=== PATIENT | male | born 1970 | race Caucasian/White ===

== ENCOUNTER 2017-07-05 08:10 | Day surgery (SDC) | payer OTHER ==
[2017-07-03 12:45] LABS: Urine WBC None Seen /hpf (0 - 3)
[2017-07-03 12:56] LABS: Basophils # (auto) 0.1 uL; Basophils % (auto) 0.9 % (0.0-2.0); Eosinophils # (auto) 0.4 uL; Eosinophils % (auto) 5.8 % (0.0-7.0); Hematocrit 43.5 % (41.0-53.0); Lymphocytes # (auto) 1.9 uL; Lymphocytes % (auto) 24.7 % (10.0-50.0); Mean Corpuscular Hemoglobin 29.4 pg (28.0-32.0); Mean Corpuscular Hgb Conc. 34.4 g/dL (32.0-36.0); Mean Corpuscular Volume 85.4 fL (80.0-100.0); Monocytes # (auto) 0.6 uL; Monocytes % (auto) 7.4 % (0.0-12.0); Neutrophils # (auto) 4.7 uL; Neutrophils % (auto) 61.2 % (37.0-80.0); Nucleated Red Blood Cells % 0.1 %; Platelet Count (auto) 259 10^3/uL (140-450); Red Blood Cells 5.09 10^6/uL (4.5-5.90); Red Cell Distribution Width 15.8 % (11.8-14.3); White Blood Cell 7.7 10^3/uL (4.4-10.8)
[2017-07-03 13:05] LABS: Urine Bacteria NONE SEEN /hpf (None Seen); Urine Blood Negative /uL (Negative); Urine Specific Gravity 1.011 (1.001-1.035)
[2017-07-03 13:14] LABS: INR 0.95 (0.9-1.15); Partial Thromboplastin Time 27.3 sec (22.64-33.71); Prothrombin Time 10.3 sec (9.37-12.3)
[2017-07-03 13:29] LABS: Albumin 4.1 g/dL (3.4-5.0); BUN/Creatinine Ratio 12.6; Potassium 3.7 mmol/L (3.5-5.1)
[2017-07-03 13:31] LABS: Bilirubin, Total 1.2 mg/dL (0.2-1.0); Total Protein 7.9 g/dL (6.4-8.2)
[~2017-07-05] VITALS: Ht 188 cm; Wt 102.5 kg
[~2017-07-05 08:10] MED LIST: ALBUAER3 IN; FLUT250M2 INH; GABA300C11 OR; OME20T PO; TAMS0.4C36 PO; TRAM50TA2 PO
[2017-07-05] MEDS ORDERED: ceFAZolin 1GM/50ML 50 ML IV ONE (08:44)
[2017-07-05] MEDS ORDERED: fentaNYL CITRATE 100 MCG/2 ML VL ONE (09:37)
[2017-07-05] MEDS ORDERED: MIDAZOLAM HCL 1MG/1ML-2 ML VIAL ONE (09:38)
[2017-07-05] MEDS ORDERED: MEPERIDINE HCL (50 MG/ML) 1 ML VIAL ONE (09:38)
[2017-07-05] MEDS ORDERED: BUPIVACAINE 0.25% INJ 50ML VIAL ONE (09:56)
[2017-07-05] MEDS ORDERED: ePHEDrine SULFATE 50 MG/ML AMP IV PRN (10:15)
[2017-07-05] MEDS ORDERED: ONDANSETRON HCL 4 MG/2 ML VIAL IV ONE (10:15)
[2017-07-05] MEDS ORDERED: LABETALOL HCL 5 MG/ML 4ML SYRINGE IV PRN (10:15)
[2017-07-05] MEDS ORDERED: KETOROLAC TROMETH 30 MG/ML 1ML VIAL IV ONE (10:15)
[2017-07-05] MEDS ORDERED: DEXAMETHASONE SOD PHOS 10MG/1ML VIAL INJ ONE (10:29)
[2017-07-05] MEDS ORDERED: KETOROLAC TROMETH 30 MG/ML 1ML VIAL ONE (10:31)
[2017-07-05] MEDS ORDERED: PROPOFOL 10 MG/ML 20 ML IV ONE (10:31)
[2017-07-05] MEDS ORDERED: MORPHINE SULFATE 8mg/ml INJ SDV IV ONE (12:00)
[2017-07-05] MEDS: MORPHINE SULFATE 8mg/ml INJ SDV IV PRN ×3 (12:10→13:10)
[2017-07-05 13:10] VITALS: BP 143/86
== END 2017-07-05 13:35 | disposition home or self-care (01) ==
LOC: SUR 08:10
PROVIDERS: ATTEND Surgery
DX: K40.91 Unilateral inguinal hernia, without obstruction or gangrene, recurrent (principal); S30.851A Superficial foreign body of abdominal wall, initial encounter; E66.9 Obesity, unspecified; J45.909 Unspecified asthma, uncomplicated; I10 Essential (primary) hypertension; Z79.01 Long term (current) use of anticoagulants; Z88.8 Allergy status to other drugs, medicaments and biological substances; Z79.891 Long term (current) use of opiate analgesic
CPT/HCPCS: 36415; 49520; 80053; 81001; 85025; 85610; 85730; J0690; J1100; J1885; J2175; J2250; J2270; J2704; J3010; J3490

== ENCOUNTER 2024-10-02 12:19 | Inpatient (IN) | payer OTHER, SELFPAY ==
[~2024-10-02] VITALS: Ht 188 cm; Wt 109.5 kg
[~2024-10-02 12:19] MED LIST changes: +GABA-1254 OR; -GABA300C11 OR; -TAMS0.4C36 PO; +TAMS0.4C39 PO
[2024-10-02 12:45] VITALS: PULSE 109; RESP 19; O2SAT 98
--- NOTE | 2024-10-02 12:50 | ED.PDOC ---
GI ASSESSMENT HPI Comments A 54 year-old male, with a PMHX of DM, Asthma, and COPD, presents to the ED with a chief complaint of Left sided abdominal pain with associated weakness, diarrhea, and cold sweats as of X3 days ago. Patient reports 6/10 abdominal pain, constant, with no associated relieving factors. Patient states abdominal pain has happened before, where he's tried a 3 day liquid diet and other online solutions but notes no alleviation. Patient has a colonoscopy scheduled on 10/14/24 for further evaluation. Patient has no other complaints at this time and otherwise denies further associated symptoms of N/V, dizziness, migraine, chest pain, hematuria, dysuria, or blood streaked stool. Chief Complaint: Abdominal Pain Time Seen by MD: 12:45 Reviewed Notes: Nurses Notes, Medications, Allergies Allergies: Coded Allergies: Fluticasone (Verified Allergy, Unknown, 07/03/17) Home Meds Reported Medications Tramadol Hcl (Tramadol Hcl) 50 Mg Tab, 50 MG PO Q6HP PRN for MODERATE PAIN, MG 07/03/17 Fluticasone-Salmeterol (Advair Diskus 250/50) 1 Puff Ih, 1 PUFF INH BID, #3 INHALER 3 Refills 07/03/17 Albuterol Sulfate (VENTOLIN MDI) 90 Mcg Ih, 180 MCG IN Q6HP PRN for SHORTNESS OF BREATH for 30 Days, MCG 07/03/17 Tamsulosin Hcl (Tamsulosin Hcl) 0.4 Mg Cap, 0.4 MG PO QPM for 30 Days, MG 07/03/17 Gabapentin (NEURONTIN CAPSULE) 300 Mg Cp, 300 MG OR PRN, CP 07/03/17 Omeprazole (Omeprazole) 20 Mg Cap, 20 MG PO DAILY, CAP 07/03/17 Information Source: Patient Mode of Arrival: Ambulatory Timing: Days (3) Duration: Since onset Severity: Moderate Pain Location: LUQ, LLQ Associated sign and symptoms: Diarrhea, Other (weakness and cold sweats ) Past Medical History Surgical History: Denies all surgeries Family History Family History: Reviewed,noncontributory to illness, No family hx of Cancer, No family hx of DM, No family hx of Heart ludmila, No family hx of HTN, No family hx ofKidney ludmila, No family hx of Liver ludmila, No family hx of Lung ludmila, No family hx of Stroke Social History Smoker: Non-Smoker Alcohol: Denies ETOH Use Drugs: Marijuana Lives In: Home Constitutional: reports: weakness, others (cold sweats ); denies: chills, diaphoresis, fatigue, fever, malaise, sweats EENTM: denies: blurred vision, double vision, ear bleeding, ear discharge, ear drainage, ear pain, ear ringing, eye pain, eye redness, hearing loss, mouth pain, mouth swelling, nasal discharge, nose bleeding, nose congestion, nose pain, photophobia, tearing, throat pain, throat swelling, voice changes, others Respiratory: denies: cough, hemoptysis, orthopnea, SOB at rest, shortness of breath, SOB with excertion, stridor, wheezing, others Cardiovascular: denies: chest pain, dizzy spells, diaphoresis, Dyspnea on exertion, edema, irregular heart beat, left arm pain, lightheadedness, palpitations, PND, syncope, others Gastrointestinal: reports: abdominal pain, diarrhea; denies: abdomen distended, blood streaked bowels, constipated, dysphagia, difficulty swallowing, hematemesis, melena, nausea, poor appetite, poor fluid intake, rectal bleeding, rectal pain, vomiting, others Genitourinary: denies: burning, dysuria, flank pain, frequency, hematuria, incontinence, penile discharge, penile sore, pain, testicle pain, testicle swelling, urgency, others Neurological: denies: dizziness, fainting, headache, left sided numbness, left sided weakness, numbness, paresthesia, pre-existing deficit, right sided numbness, right sided weakness, seizure, speech problems, tingling, tremors, weakness, others Musculoskeletal: denies: back pain, gout, joint pain, joint swelling, muscle pain, muscle stiffness, neck pain, others Integumetry: denies: bruises, change in color, change in hair/nails, dryness, laceration, lesions, lumps, rash, wounds, others Allergic/Immunocompromised: denies: Difficulty Healing, Frequent Infections, Hives, Itching, others Hematologic/Lymphatic: denies: anemia, blood clots, easy bleeding, easy bruising, swollen glands, others Endocrine: denies: excessive hunger, excessive sweating, excessive thirst, excessive urination, flushing, intolerance to cold, intolerance to heat, unexplained weight gain, unexplained weight loss, others Psychiatric: denies: anxiety, bipolar disorder, depression, hopeless, panic disorder, schizophrenia, sleepless, suicidal, others All Other Systems: Reviewed and Negative Physical Exam General Appearance: Moderate Distress, Obese HEENT: Normal ENT Inspection, Pharynx Normal, TMs Normal Neck: Full Range of Motion, Non-Tender, Normal, Normal Inspection Respiratory: Chest Non-Tender, Lungs Clear, No Accessory Muscle Use, No Respiratory Distress, Normal Breath Sounds Cardiovascular: No Edema, No JVD, No Murmur, No Gallop, Normal Peripheral Pulses, Regular Rate/Rhythm Breast Exam: Deferred Gastrointestinal: Distended, LLQ, LUQ, No Organomegaly, No Pulsatile Mass, Normal Bowel Sounds, Tenderness Genitalia: Deferred Pelvic: Deferred Rectal: Deferred Extremities: No calf tenderness, Normal capillary refill, Normal inspection, Normal range of motion, Non-tender, No pedal edema Musculoskeletal : Apperance: Normal Neurologic: Alert, juice mixer II-XII nml as Tested, No Motor Deficits, Normal Affect, Normal Mood, No Sensory Deficits Cerebellar Function: Normal Reflexes: Normal Skin: Dry, Normal Color, Warm Lymphatic: No Adenopathy Was a procedure done? Was a procedure done?: No GI differential Dx Differential Diagnosis: Constipation, Gastroenteritis, Dehydration, Food Poisoning, Bacterial, Parasitic, Viral X-Ray, Labs, Meds, VS Vital Signs Date Time Temp Pulse Resp B/P (MAP) Pulse Ox O2 Delivery O2 Flow Rate FiO2 10/02/24 12:52 104 19 153/74 10/02/24 12:45 109 19 98 Room Air* 0 21 10/02/24 12:42 98.1 109 19 155/94 (114) 98 98.1 10/02/24 12:22 97.9 107 16 130/93 98 97.9 Lab Test 10/02/24 12:50 Range/Units White Blood Count 11.3 H 4.4-10.8 10^3/uL Red Blood Count 4.74 4.5-5.90 10^6/uL Hemoglobin 13.4 L 13.5-17.5 g/dL Hematocrit 37.7 L 41.0-53.0 % Mean Corpuscular Volume 79.5 L 80.0-100.0 fL Mean Corpuscular Hemoglobin 28.2 28.0-32.0 pg Mean Corpuscular Hemoglobin Concent 35.5 32.0-36.0 g/dL Red Cell Distribution Width 18.3 H 11.8-14.3 % Platelet Count 354 140-450 10^3/uL Mean Platelet Volume 6.6 L 6.9-10.8 fL Neutrophils (%) (Auto) 70.5 37.0-80.0 % Lymphocytes (%) (Auto) 18.2 10.0-50.0 % Monocytes (%) (Auto) 8.9 0.0-12.0 % Eosinophils (%) (Auto) 1.7 0.0-7.0 % Basophils (%) (Auto) 0.7 0.0-2.0 % Neutrophils # (Auto) 8.0 1.6-8.6 10 ^3/uL Lymphocytes # (Auto) 2.1 0.4-5.4 10 ^3/uL Monocytes # (Auto) 1.0 0-1.3 10 ^3/uL Eosinophils # (Auto) 0.2 0-0.8 10 ^3/uL Basophils # (Auto) 0.1 0-0.2 10 ^3/uL Nucleated Red Blood Cells 0.0 % Prothrombin Time Pending Prothrombin Time INR Pending Activated Partial Thromboplast Time Pending Sodium Level 138 136-145 mmol/L Potassium Level 3.5 3.5-5.1 mmol/L Chloride Level 104 98-107 mmol/L Carbon Dioxide Level 22 20-31 mmol/L Anion Gap 12 5-15 Blood Urea Nitrogen 15 9-23 mg/dL Creatinine 0.83 0.700-1.30 mg/dL Glomerular Filtration Rate Calc 105 >90 mL/min BUN/Creatinine Ratio 18.1 10.0-20.0 Serum Glucose 135 H 74-106 mg/dL Calcium Level 9.7 8.7-10.4 mg/dL Total Bilirubin 1.9 H 0.2-1.0 mg/dL Aspartate Amino Transferase (AST) 25 13-40 U/L Alanine Aminotransferase (ALT) 31 7-40 U/L Alkaline Phosphatase 51 46-116 U/L Total Protein 7.5 5.7-8.2 g/dL Albumin 5.2 H 3.2-4.8 g/dL Lipase 32 12-53 U/L Current Medications Medications (Trade) Dose Ordered Sig/Bessy Route Start Time Stop Time Status Last Admin Ondansetron HCl (Zofran) 4 mg ONCE ONCE IV 10/02/24 12:45 10/02/24 12:46 DC 10/02/24 12:52 Morphine Sulfate 4 mg ONCE ONCE IV 10/02/24 12:45 10/02/24 12:46 DC 10/02/24 12:52 IV Hep-Lock was established The patient was given morphine 4 mg IV push for the pain The patient was given Zofran 4 mg IV push for the nausea A CAT scan of the abdomen and pelvis shows: IMPRESSION: 1. Acute diverticulitis of the descending colon. No definite loculated abscess. Clinical correlation and continued follow-up is recommended. 2. Diffuse hepatic steatosis. Hypodense lesion in the liver could be a cyst. This can be further evaluated with MRI of the abdomen with contrast. Sludge in the gallbladder. Punctate nonobstructive right renal calculus. Because of the findings on the CAT scan, the patient was given Flagyl 500 mg IV piggyback The patient was also given Rocephin 1 g IV piggyback The patient's CBC shows an elevated white blood cell count of 11.3. The chemistry panel otherwise shows a bilirubin of 1.9 The lipase is within normal limits The patient is being admitted to the hospitalist We have discussed the findings with the patient and he is in agreement with the management The patient is admitted at this time. Images Reviewed?: Images reviewed and evaluated by me Time of 1ST Reevaluation: 13:36 Reevaluation 1ST: Unchanged Patient Education/Counseling: Diagnosis, Treatment, Prognosis Family Education/Counseling: No Family Present SEPSIS Sepsis Screen Date sepsis recognized/suspect: Oct 02, 2024 Time Sepsis recognized/suspect: 1222 Recent Procedure: No On Antibiotic Therapy: No Respiratory Rate >20: No Heart Rate >90: Yes Temp<36 C (96.8 F) or >38.3 C: No SBP <90 or MAP <65 mmHG: No New Acute Mental Status Change: No Is the patient on CPAP, BIPAP,: No Physician Orders Urinalysis (10/02/24 12:45) Ct Ab Pel Wo Con-No Oral Or Iv (10/02/24 12:45) Heplock Iv (10/02/24 12:45) PTPTT (10/02/24 12:45) Ceftriaxone 1gm/50ml D5w (Rocephin) (10/02/24 13:45) Metronidazole 500mg/100ml (Flagyl 500mg/ (10/02/24 13:45) Vital Signs Date Time Temp Pulse Resp B/P (MAP) Pulse Ox O2 Delivery O2 Flow Rate FiO2 10/02/24 12:52 104 19 153/74 10/02/24 12:45 109 19 98 Room Air* 0 21 10/02/24 12:42 98.1 109 19 155/94 (114) 98 98.1 10/02/24 12:22 97.9 107 16 130/93 98 97.9 Laboratory Tests Test 10/02/24 12:50 White Blood Count 11.3 10^3/uL (4.4-10.8) H Medications Medications Dose Ordered Sig/Bessy Route Start Time Stop Time Status Last Admin Dose Admin Morphine Sulfate 4 mg ONCE ONCE IV 10/02/24 12:45 10/02/24 12:46 DC 10/02/24 12:52 Ondansetron HCl 4 mg ONCE ONCE IV 10/02/24 12:45 10/02/24 12:46 DC 10/02/24 12:52 Departure 1 Departure Time of Disposition: 13:41 Impression: Primary Impression: Intractable abdominal pain Additional Impression: Acute diverticulitis Disposition: ADMITTED INPATIENT Admit to: Med Surg Condition: Fair Critical Care Note Critical Care Time?: No Stability Stability form required: Yes Unstable for transfer: ED Physician Assesment (Clinical assesment) Heart Score Heart Score: Heart Score Response (Comments) Value History N/A 0 EKG N/A 0 Age N/A 0 Risk Factors N/A 0 Troponin N/A 0 Total 0 I personally scribed for SALMA WALLACE MD ([email or web address]) on 10/02/24 at 12:50. Electronically submitted by Kaleigh Reddy ([employer]). SALMA WALLACE MD Oct 02, 2024 12:50
[2024-10-02] MEDS: MORPHINE SULFATE 4 MG/ML SYR/VIAL IV ONE (12:52)
[2024-10-02] MEDS: ONDANSETRON HCL 4 MG/2 ML VIAL IV ONE (12:52)
[2024-10-02 13:14] LABS: Hematocrit 37.7 % (41.0-53.0); Hemoglobin 13.4 g/dL (13.5-17.5); Mean Corpuscular Hemoglobin 28.2 pg (28.0-32.0); Mean Corpuscular Volume 79.5 fL (80.0-100.0); Nucleated Red Blood Cells % 0.0 %
[2024-10-02 13:31] LABS: Alanine Aminotransferase 31 U/L (7-40); Alkaline Phosphatase 51 U/L (46-116); Anion Gap 12 (5-15); BUN/Creatinine Ratio 18.1 (10.0-20.0); Blood Urea Nitrogen 15 mg/dL (9-23); Calcium 9.7 mg/dL (8.7-10.4); Carbon Dioxide 22 mmol/L (20-31); Chloride 104 mmol/L (98-107); Lipase 32 U/L (12-53); Sodium 138 mmol/L (136-145); Total Protein 7.5 g/dL (5.7-8.2)
[2024-10-02 13:32] LABS: Albumin 5.2 g/dL (3.2-4.8); Bilirubin, Total 1.9 mg/dL (0.2-1.0); Glucose 135 mg/dL (74-106); Potassium 3.5 mmol/L (3.5-5.1)
--- NOTE | 2024-10-02 13:32 | DVH ---
Exam: CT CT AB PEL WO CON-NO ORAL OR IV History: pain Comparison Study: None Technique: Multidetector spiral CT of the abdomen and pelvis was performed from lung bases to pubic symphysis. Imaging was performed without IV contrast. Axial, coronal and sagittal multiplanar reform ats were obtained from the axial data set by the technologist. Radiation dose : Abdomen/Pelvis: CTDIvol 21 mGy, DLP 1272 mGy*cm. Findings: Evaluation of solid organs is limited due to lack of intravenous contrast use. Lung Bases: No acute or significant lung base finding. Normal heart size. No pleural or pericardial effusion. Liver: Diffuse hepatic steatosis. Hypodense liver lesion measuring up to 15 mm. Gallbladder and biliary Tree: Sludge in the gallbladder. Spleen: Unremarkable Pancreas: The pancreas is grossly normal in appearance. Adrenal Glands: Unremarkable Kidneys: Punctate right renal calculus. No hydronephrosis. Bladder: Grossly unremarkable for degree of distention. Bowel: The stomach is grossly normal in appearance. Small bowel and colon are normal in caliber and d istribution. Normal appendix is visualized in the right lower quadrant without findings of appendicit is. Colonic diverticulosis. Wall thickening with adjacent stranding in the descending colon. No def inite loculated abscess. Ascites: Absent Lymphadenopathy: Subcentimeter mesenteric lymph nodes noted. Abdominal wall and Mesentery: Stranding along the descending colon as above. Vasculature: Calcified atherosclerotic disease. Pelvic Organs: Unremarkable Musculoskeletal: No aggressive focal bony lesions, acute fractures or dislocation. IMPRESSION: 1. Acute diverticulitis of the descending colon. No definite loculated abscess. Clinical correlatio n and continued follow-up is recommended. 2. Diffuse hepatic steatosis. Hypodense lesion in the liver could be a cyst. This can be further adarsh luated with MRI of the abdomen with contrast. Sludge in the gallbladder. Punctate nonobstructive righ t renal calculus. Radiation optimization: All CT scans at this facility use at least one of these dose optimization elisabet hniques: Automated exposure control mA and/or kV adjustment per patient size (includes targeted exams where dose is matched to clinical indication) or iterative reconstruction. HS:Y
[2024-10-02] MEDS: cefTRIAXone 1GM/50ML D5W 50 ML IV ONE (14:00)
[2024-10-02 14:01] LABS: INR 1.12 (0.9-1.15); Partial Thromboplastin Time 30.7 SEC (24.5-34.5); Prothrombin Time 11.7 sec (9.3-11.8)
[2024-10-02 16:51] LABS: Urine Amorphous Crystal FEW /hpf (None Seen); Urine Protein, UAD 1+ (Negative)
--- NOTE | 2024-10-02 18:54 | DVHHP2 ---
Admitting Diagnosis: Abdominal pain History of Present Illness A 54 year-old male, with a PMHX of DM, Asthma, and COPD, presents to the ED with a chief complaint of Left sided abdominal pain with associated weakness, diarrhea, and cold sweats as of X3 days ago. Patient reports 6/10 abdominal pain, constant, with no associated relieving factors. Patient states abdominal pain has happened before, where he's tried a 3 day liquid diet and other online solutions but notes no alleviation. Patient has a colonoscopy scheduled on 10/14/24 for further evaluation. Patient has no other complaints at this time and otherwise denies further associated symptoms of N/V, dizziness, migraine, chest pain, hematuria, dysuria, or blood streaked stool. Surgical History: Denies all surgeries Family History Family History: Reviewed,noncontributory to illness, No family hx of Cancer, No family hx of DM, No family hx of Heart ludmila, No family hx of HTN, No family hx ofKidney ludmila, No family hx of Liver ludmila, No family hx of Lung ludmila, No family hx of Stroke Social History Smoker: Non-Smoker Alcohol: Denies ETOH Use Drugs: Marijuana Lives In: Home Allergies: Coded Allergies: Fluticasone (Verified Allergy, Unknown, 07/03/17) Home Meds Reported Medications Tramadol Hcl (Tramadol Hcl) 50 Mg Tab, 50 MG PO Q6HP PRN for MODERATE PAIN, MG 07/03/17 Fluticasone-Salmeterol (Advair Diskus 250/50) 1 Puff Ih, 1 PUFF INH BID, #3 INHALER 3 Refills 07/03/17 Albuterol Sulfate (VENTOLIN MDI) 90 Mcg Ih, 180 MCG IN Q6HP PRN for SHORTNESS OF BREATH for 30 Days, MCG 07/03/17 Tamsulosin Hcl (Tamsulosin Hcl) 0.4 Mg Cap, 0.4 MG PO QPM for 30 Days, MG 07/03/17 Gabapentin (NEURONTIN CAPSULE) 300 Mg Cp, 300 MG OR PRN, CP 07/03/17 Omeprazole (Omeprazole) 20 Mg Cap, 20 MG PO DAILY, CAP 07/03/17 Vital Signs Vital Signs Date Time Temp Pulse Resp B/P (MAP) Pulse Ox O2 Delivery O2 Flow Rate FiO2 10/02/24 15:15 98.7 95 18 114/74 (87) 97 98.7 10/02/24 12:45 Room Air* 0 21 Physical Exam Generally 54 years old male, well nourished well developed. No apparent distress HEENT-atraumatic, normocephalic Heart-regular rate and rhythm Lungs clear to auscultate bilaterally Abdomen soft mild epigastrium tender nondistended Musculoskeletal-no edema cyanosis Neuro-AO x3, no focal deficits SEPSIS Sepsis Screen Date sepsis recognized/suspect: Oct 02, 2024 Time Sepsis recognized/suspect: 1514 Recent Procedure: No On Antibiotic Therapy: No Respiratory Rate >20: No Heart Rate >90: No Temp<36 C (96.8 F) or >38.3 C: No SBP <90 or MAP <65 mmHG: No New Acute Mental Status Change: No Is the patient on CPAP, BIPAP,: No Physician Orders Ct Ab Pel Wo Con-No Oral Or Iv (10/02/24 12:45) Heplock Iv (10/02/24 12:45) Clear Liq Diet (10/03/24 Breakfast) Complete Blood Count (10/03/24 05:00) Complete Blood Count (10/04/24 05:00) Complete Blood Count (10/05/24 05:00) Complete Blood Count (10/06/24 05:00) Complete Blood Count (10/07/24 05:00) Comprehensive Metabolic Panel (10/03/24 05:00) Comprehensive Metabolic Panel (10/04/24 05:00) Comprehensive Metabolic Panel (10/05/24 05:00) Comprehensive Metabolic Panel (10/06/24 05:00) Comprehensive Metabolic Panel (10/07/24 05:00) Ceftriaxone 1gm/50ml D5w (Rocephin) (10/03/24 09:00) Metronidazole 500mg/100ml (Flagyl 500mg/ (10/02/24 22:00) Admit (10/02/24 18:48) Code Status (10/02/24 18:48) Vital Signs .PER UNIT PROTOCOL (10/02/24 18:48) Review Orders With Adm.Md (10/02/24 18:48) Encourage Activity As Tolerate (10/02/24 18:48) Sodium Chloride Lock (Saline Lock Ns) (10/02/24 22:00) Sodium Chloride 0.9% (10/02/24 19:00) Docusate Sodium Capsule (Colace Capsule) (10/02/24 19:00) Acetaminophen Tablet (Tylenol Tablet) (10/02/24 19:00) Notify Md Of Changes From Base (10/02/24 18:48) Advance Directive (10/02/24 18:48) Patient Condition (10/02/24 18:48) Allergies (10/02/24 18:48) Hydrocodone-Acet 5/325mg Tab ([place] 5/32 (10/02/24 19:00) Ondansetron Hcl (Zofran) (10/02/24 19:00) Enoxaparin Sodium (Lovenox) (10/03/24 10:00) Vital Signs Date Time Temp Pulse Resp B/P (MAP) Pulse Ox O2 Delivery O2 Flow Rate FiO2 10/02/24 15:15 98.7 95 18 114/74 (87) 97 98.7 10/02/24 14:10 95 16 129/82 10/02/24 14:00 95 16 129/82 (98) 97 10/02/24 12:52 104 19 153/74 10/02/24 12:45 109 19 98 Room Air* 0 21 10/02/24 12:42 98.1 109 19 155/94 (114) 98 98.1 10/02/24 12:22 97.9 107 16 130/93 98 97.9 Laboratory Tests Test 10/02/24 12:50 White Blood Count 11.3 10^3/uL (4.4-10.8) H Medications Medications Dose Ordered Sig/Bessy Route Start Time Stop Time Status Last Admin Dose Admin Ceftriaxone Sodium 50 ml @ 100 mls/hr ONCE ONCE IV 10/02/24 13:45 10/02/24 14:14 DC 10/02/24 14:00 Metronidazole 100 ml @ 100 mls/hr ONCE ONCE IV 10/02/24 13:45 10/02/24 14:44 DC 10/02/24 14:23 Morphine Sulfate 4 mg ONCE ONCE IV 10/02/24 12:45 10/02/24 12:46 DC 10/02/24 12:52 Ondansetron HCl 4 mg ONCE ONCE IV 10/02/24 12:45 10/02/24 12:46 DC 10/02/24 12:52 Results Labs Test 10/02/24 16:30 10/02/24 12:50 Range/Units Urine Color Yellow Yellow Urine Clarity Turbid H Clear Urine pH 5.5 5.0-9.0 Urine Specific [place] 1.030 1.001-1.035 Urine Protein 1+ H Negative Urine Ketones 1+ H Negative Urine Blood Negative Negative /uL Urine Nitrite Negative Negative Urine Bilirubin Negative Negative Urine Urobilinogen 3 H Negative mg/dL Urine Leukocyte Esterase Negative Negative /uL Urine RBC <1 0 - 3 /hpf Urine Microscopic WBC 4 H 0-3 /HPF Urine Squamous Epithelial Cells Few <5 /hpf Urine Amorphous Crystals Few None Seen /hpf Urine Bacteria None seen None Seen /hpf Urine Mucus Few None Seen Urine Glucose Normal Normal mg/dL White Blood Count 11.3 H 4.4-10.8 10^3/uL Red Blood Count 4.74 4.5-5.90 10^6/uL Hemoglobin 13.4 L 13.5-17.5 g/dL Hematocrit 37.7 L 41.0-53.0 % Mean Corpuscular Volume 79.5 L 80.0-100.0 fL Mean Corpuscular Hemoglobin 28.2 28.0-32.0 pg Mean Corpuscular Hemoglobin Concent 35.5 32.0-36.0 g/dL Red Cell Distribution Width 18.3 H 11.8-14.3 % Platelet Count 354 140-450 10^3/uL Mean Platelet Volume 6.6 L 6.9-10.8 fL Neutrophils (%) (Auto) 70.5 37.0-80.0 % Lymphocytes (%) (Auto) 18.2 10.0-50.0 % Monocytes (%) (Auto) 8.9 0.0-12.0 % Eosinophils (%) (Auto) 1.7 0.0-7.0 % Basophils (%) (Auto) 0.7 0.0-2.0 % Neutrophils # (Auto) 8.0 1.6-8.6 10 ^3/uL Lymphocytes # (Auto) 2.1 0.4-5.4 10 ^3/uL Monocytes # (Auto) 1.0 0-1.3 10 ^3/uL Eosinophils # (Auto) 0.2 0-0.8 10 ^3/uL Basophils # (Auto) 0.1 0-0.2 10 ^3/uL Nucleated Red Blood Cells 0.0 % Prothrombin Time 11.7 9.3-11.8 sec Prothrombin Time INR 1.12 0.9-1.15 Activated Partial Thromboplast Time 30.7 24.5-34.5 SEC Sodium Level 138 136-145 mmol/L Potassium Level 3.5 3.5-5.1 mmol/L Chloride Level 104 98-107 mmol/L Carbon Dioxide Level 22 20-31 mmol/L Anion Gap 12 5-15 Blood Urea Nitrogen 15 9-23 mg/dL Creatinine 0.83 0.700-1.30 mg/dL Glomerular Filtration Rate Calc 105 >90 mL/min BUN/Creatinine Ratio 18.1 10.0-20.0 Serum Glucose 135 H 74-106 mg/dL Calcium Level 9.7 8.7-10.4 mg/dL Total Bilirubin 1.9 H 0.2-1.0 mg/dL Aspartate Amino Transferase (AST) 25 13-40 U/L Alanine Aminotransferase (ALT) 31 7-40 U/L Alkaline Phosphatase 51 46-116 U/L Total Protein 7.5 5.7-8.2 g/dL Albumin 5.2 H 3.2-4.8 g/dL Lipase 32 12-53 U/L Primary Diagnosis Acute diverticulitis Nonobstructing renal calculus Plan Ceftriaxone 1 g q.day, Flagyl q.8 hours 500 Monitor for pain IV fluids Clear liquid diet advance as tolerated Antiemetic Ultrasound abdomen to assess for elevated LFT woman and gallbladder Full code Lovenox for DVT prophylaxis No GI for prophylaxis needed Plan discussed with: Patient Date of Service: Oct 02, 2024 Billing Provider: KRISTINE GARCIA MD Common Visit Codes: 52207-[id number] INP/OBS CARE (MOD) KRISTINE GARCIA MD Oct 02, 2024 18:54
[2024-10-02] MEDS ORDERED: HYDROcodone-ACET 5/325MG TAB PO PRN (19:00)
[2024-10-02] MEDS ORDERED: ONDANSETRON HCL 4 MG/2 ML VIAL IV PRN (19:00)
[2024-10-02] MEDS ORDERED: DOCUSATE SOD 100 MG CAP PO PRN (19:00)
[2024-10-02] MEDS: SODIUM CHLORIDE 0.9% 1,000 ML IV SCH (19:18)
--- NOTE | 2024-10-02 20:03 | DVH ---
ULTRASOUND ABDOMEN: REASON FOR EXAM: asess renal and liver. elevated lft and kidney stone TECHNIQUE: Real-time sector scans in the transverse and longitudinal planes were obtained through th e abdomen. FINDINGS: The liver is enlarged at 20.6 cm in length. There is a anechoic cyst measuring 1.5 x 1.4 x 1.6 cm in the left lobe of the liver. The liver parenchyma is severely echogenic. There is hepatopet al flow in the portal vein. There is no intrahepatic nor extrahepatic biliary ductal dilatation. The common bile duct measures 6 mm. No gallstones or sludge are identified. There is no gallbladder wa ll thickening nor pericholecystic fluid. There is no sonographic Gardner's sign. The spleen is borderline enlarged at 14.9 cm in length. The visualized portion of the pancreas is unr emarkable. The right kidney measures 10.6 cm. The left kidney measures 11.3 cm. There is no hydronephrosis of either kidney. There is a 3 mm nonobstructive shadowing stone at the inferior pole of the right kidne y. There is no evidence of focal renal mass or cyst. The visualized portions of the abdominal aorta demonstrate no evidence of aneurysmal dilatation. The visualized inferior vena cava is unremarkable. There is no free intraperitoneal fluid. IMPRESSION: The liver is severely echogenic. The liver is diffusely hypoattenuating which may be secondary to eduardo atosis or another diffuse hepatic process. Correlate clinically and with liver function tests. Simple appearing 1.6 cm left hepatic cyst. No dedicated follow-up is required. Borderline splenomegaly Nonobstructive 3 mm right renal calculus.
[2024-10-02 21:40] VITALS: BP 132/89; PULSE 80; RESP 19; TEMP 97.9; O2SAT 99
[2024-10-02] MEDS: SODIUM CHLOR 0.9% PF (SALINE LOCK) 10ML VIAL/SYR IV SCH (22:34)
[2024-10-03] VITALS (8 sets, daily range): BP systolic 109–138; BP diastolic 74–90; PULSE 65–86; RESP 18–20; TEMP 97.7–98.1; O2SAT 96–99
[2024-10-03] MEDS ORDERED: ALBU0.084 NEB (00:17)
[2024-10-03 06:59] LABS: Hematocrit 36.3 % (41.0-53.0); Hemoglobin 12.8 g/dL (13.5-17.5); Mean Corpuscular Hemoglobin 28.1 pg (28.0-32.0); Mean Corpuscular Volume 80.0 fL (80.0-100.0); Nucleated Red Blood Cells % 0.0 %
[2024-10-03 07:09] LABS: Alanine Aminotransferase 35 U/L (7-40); Alkaline Phosphatase 52 U/L (46-116); Anion Gap 13 (5-15); BUN/Creatinine Ratio 19.8 (10.0-20.0); Blood Urea Nitrogen 17 mg/dL (9-23); Calcium 10.0 mg/dL (8.7-10.4); Carbon Dioxide 24 mmol/L (20-31); Chloride 103 mmol/L (98-107); Potassium 3.6 mmol/L (3.5-5.1); Sodium 140 mmol/L (136-145); Total Protein 7.2 g/dL (5.7-8.2)
[2024-10-03 07:10] LABS: Albumin 5.2 g/dL (3.2-4.8); Bilirubin, Total 1.5 mg/dL (0.2-1.0); Glucose 138 mg/dL (74-106)
[2024-10-03] MEDS: cefTRIAXone 1GM/50ML D5W 50 ML IV SCH (09:02)
[2024-10-03] MEDS: ENOXAPARIN SOD 40 MG/0.4 ML SYRINGE SC SCH (09:09)
--- NOTE | 2024-10-03 11:19 | DVHPN2 ---
Progress Note Date Seen: Oct 03, 2024 Medical Necessity Reason Pt with a Central, PICC or Fol: No Subjective Patient reports: No new complaints Review of Systems: HEENT:Normal, CVS:Normal, RESPIRATORY:Normal, GI:Normal, :Normal, MSK:Normal, NEURO:Normal Objective vital signs Vital Sign Date Time Temp Pulse Resp B/P (MAP) Pulse Ox O2 Delivery O2 Flow Rate FiO2 10/03/24 10:00 98.1 79 20 136/84 (101) 98 98.1 10/02/24 23:05 Room Air* 0 21 Total Intake and Output 10/02/24 10/02/24 10/03/24 15:00 23:00 07:00 Intake Total 50 ml 100 ml 200 ml Balance 50 ml 100 ml 200 ml medications Current Medications Medications Dose Ordered Sig/Bessy Route Start Time Stop Time Status Last Admin Dose Admin Ceftriaxone Sodium 50 ml @ 100 mls/hr DAILY@09 IV 10/03/24 09:00 10/03/24 09:02 100 MLS/HR Metronidazole 100 ml @ 100 mls/hr Q8HR IV 10/02/24 22:00 10/03/24 05:46 100 MLS/HR Sodium Chloride 10 ml Q8HR IV 10/02/24 22:00 10/03/24 05:45 10 ML Sodium Chloride 1,000 ml @ 60 mls/hr [id number] IV 10/02/24 19:00 10/02/24 19:18 60 MLS/HR Docusate Sodium 100 mg BIDPRN PRN PO 10/02/24 19:00 Acetaminophen 650 mg Q6HP PRN PO 10/02/24 19:00 Acetaminophen/ Hydrocodone Bitart 1 tab Q4HP PRN PO 10/02/24 19:00 Ondansetron HCl 4 mg Q4HP PRN IV 10/02/24 19:00 Enoxaparin Sodium 40 mg DAILY SC 10/03/24 10:00 Examination: GENERAL:Normal, HEENT:Normal, NECK:Normal, LUNGS:Normal, CVS:Normal, ABDOMEN:Normal, ABDOMEN:Abnormal (left abd tenderness), MSK:Normal, SKIN:Normal, NEURO:Normal, :Normal laboratory and microbiology Laboratory Tests 10/03/24 06:24 Test 10/03/24 06:24 Range/Units Serum Glucose 138 H 74-106 mg/dL Problem List/Assessment/Plan Problem List/Assessment/Plan #1 acute diverticulitis: iv antibiotics #2 copd #3 prediabetes #4 renal stone #5 hepatic steatosis advance care planning- full code- time spent 17 mins Plan discussed with: Patient Date of Service: Oct 03, 2024 Billing Provider: DARLEEN HASSAN MD Common Visit Codes: [id number] INP/OBS CARE(HIGH) Secondary Visit Codes: [id number] CARE PLAN 30 MINUTES DARLEEN HASSAN MD Oct 03, 2024 11:19
[2024-10-03] MEDS ORDERED: MORPHINE SULFATE INJ 2 MG/ml SYRG IV PRN (11:30)
[2024-10-03] MEDS: ACETAMINOPHEN 325 MG TAB PO PRN (13:04)
[2024-10-04] VITALS (8 sets, daily range): BP systolic 120–145; BP diastolic 69–97; PULSE 67–84; RESP 17–18; TEMP 96.6–97.9; O2SAT 94–98
[2024-10-04 05:32] LABS: Alanine Aminotransferase 30 U/L (7-40); Albumin 4.6 g/dL (3.2-4.8); Alkaline Phosphatase 48 U/L (46-116); Anion Gap 11 (5-15); BUN/Creatinine Ratio 14.8 (10.0-20.0); Blood Urea Nitrogen 12 mg/dL (9-23); Calcium 9.0 mg/dL (8.7-10.4); Carbon Dioxide 23 mmol/L (20-31); Chloride 106 mmol/L (98-107); Potassium 3.5 mmol/L (3.5-5.1); Sodium 140 mmol/L (136-145); Total Protein 6.4 g/dL (5.7-8.2)
[2024-10-04 05:33] LABS: Bilirubin, Total 0.8 mg/dL (0.2-1.0)
[2024-10-04 05:36] LABS: Glucose 142 mg/dL (74-106)
[2024-10-04 05:41] LABS: Hematocrit 34.8 % (41.0-53.0); Hemoglobin 12.2 g/dL (13.5-17.5); Mean Corpuscular Hemoglobin 27.8 pg (28.0-32.0); Mean Corpuscular Volume 79.6 fL (80.0-100.0); Nucleated Red Blood Cells % 0.1 %
--- NOTE | 2024-10-04 17:37 | DVHPN2 ---
Subjective Better Changes from previous H/P or p: Changes Objective Vitals Vital Signs Date Time Temp Pulse Resp B/P (MAP) Pulse Ox O2 Delivery O2 Flow Rate FiO2 10/04/24 17:00 97.3 67 17 132/77 (95) 98 97.3 10/04/24 08:00 Room Air* 0 21 Intake/Output Intake and Output 10/04/24 07:00 Intake Total 2009 ml Balance 2009 ml Intake Oral 1300 ml IV Total 710 ml # Voids 10 # Bowel Movements 8 General Appearance: Alert, Oriented X3, Cooperative Lungs: Clear to auscultation, Normal air movement Cardiovascular: Regular rate, Normal S1, Normal S2 Abdomen: Normal bowel sounds, Soft, No tenderness Extremities: No edema Medications Current Medications Medications Dose Ordered Sig/Bessy Route Start Time Stop Time Status Last Admin Dose Admin Ceftriaxone Sodium 50 ml @ 100 mls/hr DAILY@09 IV 10/03/24 09:00 10/04/24 09:42 100 MLS/HR Metronidazole 100 ml @ 100 mls/hr Q8HR IV 10/02/24 22:00 10/04/24 15:49 100 MLS/HR Sodium Chloride 10 ml Q8HR IV 10/02/24 22:00 10/04/24 14:00 10 ML Sodium Chloride 1,000 ml @ 60 mls/hr [id number] IV 10/02/24 19:00 10/03/24 11:40 60 MLS/HR Docusate Sodium 100 mg BIDPRN PRN PO 10/02/24 19:00 Acetaminophen 650 mg Q6HP PRN PO 10/02/24 19:00 10/03/24 13:04 650 MG Acetaminophen/ Hydrocodone Bitart 1 tab Q4HP PRN PO 10/02/24 19:00 Ondansetron HCl 4 mg Q4HP PRN IV 10/02/24 19:00 Enoxaparin Sodium 40 mg DAILY SC 10/03/24 10:00 Morphine Sulfate 1 mg Q6HP PRN IV 10/03/24 11:30 Laboratory Results Laboratory Tests 10/04/24 04:58 Chemistry Test 10/04/24 04:58 Albumin 4.6 g/dL (3.2-4.8) Calcium Level 9.0 mg/dL (8.7-10.4) Total Protein 6.4 g/dL (5.7-8.2) LFT Test 10/04/24 04:58 Alanine Aminotransferase (ALT) 30 U/L (7-40) Alkaline Phosphatase 48 U/L (46-116) Aspartate Amino Transferase (AST) 22 U/L (13-40) Total Bilirubin 0.8 mg/dL (0.2-1.0) Urinalysis Test 10/02/24 16:30 Urine Color Yellow (Yellow) Urine Clarity Turbid (Clear) H Urine pH 5.5 (5.0-9.0) Urine Specific [place] 1.030 (1.001-1.035) Urine Protein 1+ (Negative) H Urine Ketones 1+ (Negative) H Urine Blood Negative /uL (Negative) Urine Nitrite Negative (Negative) Urine Bilirubin Negative (Negative) Urine Urobilinogen 3 mg/dL (Negative) H Urine Leukocyte Esterase Negative /uL (Negative) Urine RBC <1 /hpf (0 - 3) Urine Microscopic WBC 4 /HPF (0-3) H Urine Squamous Epithelial Cells Few /hpf (<5) Urine Amorphous Crystals Few /hpf (None Seen) Urine Bacteria None seen /hpf (None Seen) Urine Mucus Few (None Seen) Urine Glucose Normal mg/dL (Normal) Assessment/Plan Assessment/Plan Acute diverticulitis COPD Hepatic steatosis PLAN: Advance diet Rocephin Flagyl IV fluids Plan discussed with: Patient My Orders Orders - BOZENA GARCIA MD Procedure Category Date Status Time Mechanical Soft Diet DIET 10/04/24 Transmitted Lunch Date of Service: Oct 04, 2024 Billing Provider: BOZENA GARCIA MD Common Visit Codes: [id number] INP/OBS CARE(HIGH) BOZENA GARCIA MD Oct 04, 2024 17:37
[2024-10-05 01:00] VITALS: BP 129/83; PULSE 73; RESP 17; TEMP 98; O2SAT 96
[2024-10-05 05:00] VITALS: BP 124/82; PULSE 70; RESP 17; TEMP 97.7; O2SAT 96
[2024-10-05 08:00] VITALS: PULSE 80; RESP 18; O2SAT 96
[2024-10-05 09:00] VITALS: BP 123/87; PULSE 72; RESP 16; TEMP 97.7; O2SAT 95
[2024-10-05 09:45] LABS: Hematocrit 38.5 % (41.0-53.0); Hemoglobin 13.7 g/dL (13.5-17.5); Mean Corpuscular Hemoglobin 28.4 pg (28.0-32.0); Mean Corpuscular Volume 79.9 fL (80.0-100.0); Nucleated Red Blood Cells % 0.1 %
[2024-10-05 09:59] LABS: Alanine Aminotransferase 34 U/L (7-40); Alkaline Phosphatase 54 U/L (46-116); Anion Gap 12 (5-15); BUN/Creatinine Ratio 14.7 (10.0-20.0); Bilirubin, Total 0.7 mg/dL (0.2-1.0); Blood Urea Nitrogen 14 mg/dL (9-23); Calcium 9.7 mg/dL (8.7-10.4); Carbon Dioxide 24 mmol/L (20-31); Chloride 106 mmol/L (98-107); Potassium 3.6 mmol/L (3.5-5.1); Sodium 142 mmol/L (136-145); Total Protein 7.4 g/dL (5.7-8.2)
[2024-10-05 10:05] LABS: Albumin 5.2 g/dL (3.2-4.8); Glucose 207 mg/dL (74-106)
[2024-10-05] MEDS ORDERED: METR-344 PO (10:37)
[2024-10-05] MEDS ORDERED: CIPR-173 PO (10:37)
--- NOTE | 2024-10-05 10:37 | DVHDS2 ---
Discharge Summary Date of Admission Oct 02, 2024 at 18:48 Date of Discharge: Oct 05, 2024 Labs/Diagnostic Data: Laboratory Results Test 10/05/24 09:10 10/02/24 16:30 10/02/24 12:50 White Blood Count 7.6 10^3/uL (4.4-10.8) Red Blood Count 4.81 10^6/uL (4.5-5.90) Hemoglobin 13.7 g/dL (13.5-17.5) Hematocrit 38.5 % (41.0-53.0) Mean Corpuscular Volume 79.9 fL (80.0-100.0) Mean Corpuscular Hemoglobin 28.4 pg (28.0-32.0) Mean Corpuscular Hemoglobin Concent 35.6 g/dL (32.0-36.0) Red Cell Distribution Width 18.1 % (11.8-14.3) Platelet Count 414 10^3/uL (140-450) Mean Platelet Volume 7.0 fL (6.9-10.8) Neutrophils (%) (Auto) 61.0 % (37.0-80.0) Lymphocytes (%) (Auto) 25.0 % (10.0-50.0) Monocytes (%) (Auto) 7.8 % (0.0-12.0) Eosinophils (%) (Auto) 4.8 % (0.0-7.0) Basophils (%) (Auto) 1.4 % (0.0-2.0) Neutrophils # (Auto) 4.7 10 ^3/uL (1.6-8.6) Lymphocytes # (Auto) 1.9 10 ^3/uL (0.4-5.4) Monocytes # (Auto) 0.6 10 ^3/uL (0-1.3) Eosinophils # (Auto) 0.4 10 ^3/uL (0-0.8) Basophils # (Auto) 0.1 10 ^3/uL (0-0.2) Nucleated Red Blood Cells 0.1 % Sodium Level 142 mmol/L (136-145) Potassium Level 3.6 mmol/L (3.5-5.1) Chloride Level 106 mmol/L (98-107) Carbon Dioxide Level 24 mmol/L (20-31) Anion Gap 12 (5-15) Blood Urea Nitrogen 14 mg/dL (9-23) Creatinine 0.95 mg/dL (0.700-1.30) Glomerular Filtration Rate Calc 96 mL/min (>90) BUN/Creatinine Ratio 14.7 (10.0-20.0) Serum Glucose 207 mg/dL (74-106) Calcium Level 9.7 mg/dL (8.7-10.4) Total Bilirubin 0.7 mg/dL (0.2-1.0) Aspartate Amino Transferase (AST) 22 U/L (13-40) Alanine Aminotransferase (ALT) 34 U/L (7-40) Alkaline Phosphatase 54 U/L (46-116) Total Protein 7.4 g/dL (5.7-8.2) Albumin 5.2 g/dL (3.2-4.8) Urine Color Yellow (Yellow) Urine Clarity Turbid (Clear) Urine pH 5.5 (5.0-9.0) Urine Specific [place] 1.030 (1.001-1.035) Urine Protein 1+ (Negative) Urine Ketones 1+ (Negative) Urine Blood Negative /uL (Negative) Urine Nitrite Negative (Negative) Urine Bilirubin Negative (Negative) Urine Urobilinogen 3 mg/dL (Negative) Urine Leukocyte Esterase Negative /uL (Negative) Urine RBC <1 /hpf (0 - 3) Urine Microscopic WBC 4 /HPF (0-3) Urine Squamous Epithelial Cells Few /hpf (<5) Urine Amorphous Crystals Few /hpf (None Seen) Urine Bacteria None seen /hpf (None Seen) Urine Mucus Few (None Seen) Urine Glucose Normal mg/dL (Normal) Prothrombin Time 11.7 sec (9.3-11.8) Prothrombin Time INR 1.12 (0.9-1.15) Activated Partial Thromboplast Time 30.7 SEC (24.5-34.5) Lipase 32 U/L (12-53) Other Laboratory Tests 10/05/24 09:10 Brief Hx & Hospital Course: Final diagnoses: Acute diverticulitis COPD Hepatic steatosis 54-year-old male who was admitted for acute diverticulitis and abdominal pain He also had hepatic steatosis He was treated conservatively with clear liquid diet and IV fluids and IV antibiotics and pain management Overall he improved slowly and his diet was advanced yesterday which he tolerated very well Today he is asymptomatic and therefore he will be discharged home on 7 days of Cipro and Flagyl Advance his diet slowly as tolerated Follow up with the primary care physician as soon as possible Resume other home medications Condition at Discharge: Stable Final Diagnosis/Problems List Acute diverticulitis COPD Hepatic steatosis Discharge Disposition: Home SNF Discharge Will this Physician continue t: No Discharge Instruct/Medications Scheduled Albuterol Sulfate (Albuterol Sulfate), 1 VIAL NEB Q4HPRN, (Reported) Fluticasone-Salmeterol (Advair Diskus 250/50), 1 PUFF INH BID, (Reported) Gabapentin (Neurontin Capsule), 300 MG OR PRN, (Reported) Omeprazole (Omeprazole), 20 MG PO DAILY, (Reported) Scheduled PRN Albuterol Sulfate (Ventolin Mdi), 180 MCG IN Q6HP PRN for SHORTNESS OF BREATH, (Reported) Discharge Statement: "Patient was advised to return to the ER or call 911 if any headaches, dizziness, shortness of breath, chest pain, abdominal pain, bleeding, fevers, or worsening of medical condition. Patient was counseled about treatment plan, medications, possible side effects, patientverbalized understanding. All questions were answered to the best of my ability. This discharge took greater then 30 minutes in planning, reviewing documentation, counseling the patient, and discussing with other team members." ASSESSMENT ASSESSMENT Assessment Date of Service: Oct 05, 2024 Billing Provider: BOZENA GARCIA MD Common Visit Codes: [id number]/[id number] DISCH DAY >30min BOZENA GARCIA MD Oct 05, 2024 10:37
[2024-10-05] MEDS: PANTOPRAZOLE 40 MG TAB PO ONE (10:53)
[2024-10-05] MEDS: MAALOX PLUS or MAALOX 30 ML PO ONE (10:54)
== END 2024-10-05 11:30 | disposition home or self-care (01) | DRG 392 ==
LOC: ER 12:19 → OVERFLOW 18:48 → WEST WING 18:50
PROVIDERS: ADMIT Internal Medicine Geriatric Medicine; ATTEND Internal Medicine Geriatric Medicine
DX: K57.32 Diverticulitis of large intestine without perforation or abscess without bleeding (principal); N20.0 Calculus of kidney; K76.0 Fatty (change of) liver, not elsewhere classified; J44.89 Other specified chronic obstructive pulmonary disease; E11.9 Type 2 diabetes mellitus without complications; Z88.8 Allergy status to other drugs, medicaments and biological substances; Z79.899 Other long term (current) drug therapy
CPT/HCPCS: 36415; 74176; 76700; 80053; 81001; 83690; 85025; 85610; 85730; 96374; G0378; J2405; J3490